=== PATIENT | male | born 1955 | race American Indian/Alaskan Native ===

== ENCOUNTER 2020-12-23 08:26 | Emergency (ER) | payer MEDICAID, SELFPAY ==
[2020-12-23 08:35] VITALS: BP 156/90; PULSE 62; RESP 18; TEMP 36.9; O2SAT 98; BMI 25.0
--- NOTE | 2020-12-23 08:43 | ED_ITS ---
HPI - Dental/Oral General Chief complaint: Dental/Oral Stated complaint: bad tooth ache, lower and upper Time Seen by Provider: 12/23/20 08:30 Source: patient Mode of arrival: Ambulatory Limitations: no limitations History of Present Illness HPI Narrative: 65-year-old male smoker with noncontributory medical history presents with a chief complaint of some mild facial swelling and multiple dental caries and fractured teeth causing pain over the past few days. He is unable to get in with his dentist until Monday and is hoping for some help. He does have some mild swelling as stated but denies any difficulty in swallowing. He denies any foul taste in his mouth. He has had no fever, chills nor nausea or vomi ting. MD Complaint: tooth pain Teeth map: 1. 2. 3. 4. Onset (ago): day(s) Duration: constant Relieving factors: nothing Exacerbating factors: chewing, cold, heat and drinking fluids Context: history of dental caries Treatment prior to arrival: none Related Data Previous Rx's Medication Instructions Recorded hydrocodone-acetaminophen 0 tab PO Q6HP PRN #30 tab 11/12/17 amoxicillin-pot clavulanate 1 tab PO BID #20 tab 12/23/20 [Augmentin] ketorolac 10 mg PO Q6H PRN #14 tab 12/23/20 Allergies Allergy/AdvReac Type Severity Reaction Status Date / Time No Known Drug Allergies Allergy Unverified 12/21/17 11:26 Review of Systems Constitutional Constitutional: Denies body ache(s), Denies chills and Denies headache(s) Eyes Eyes: Denies blurry vision ENT Ears, Nose, Mouth, and Throat: Reports dental pain, Denies headache(s) and Reports lip swelling Cardiovascular Cardiovascular: Denies chest pain Respiratory Respiratory: Denies cough Gastrointestinal Gastrointestinal: Denies abdominal pain, Denies nausea and Denies vomiting Integumentary/Breasts Skin/Breast: Denies rash Neurologic Neurologic: Denies headache(s) Allergic/Immunologic Allergic/Immunologic: Reports lip swelling Patient History Social History Smoking Status: Current every day smoker Smoking Status: Current every day smoker (1-2 packs weekly) Exam Narrative Exam Narrative: GEN: AOx3 and in mild distress EYES: Pupils are equal, round, and reactive to light and accommodation. Extraoccular muscles are intact bilaterally. There is no subconjunctival hemorrhage or exudate. ENT: Minimal right upper maxillary swelling with tenderness to palpation, no erythema, warmth, fluctuance or induration. Intraoral exam notes widespread poor dentition with multiple dental caries, no obvious abscess to drain. No s ignificant facial swelling no neck swelling CHEST: Lungs are clear to auscultation bilaterally and free of wheezes, rales, or rhonchi. Heart rate is regular rhythm, there are no murmurs, clicks, rubs, or gallops. There is no chest wall tenderness. ABD: Abdomen is soft and nontender. There is no guarding or rebound. Bowel sounds are normal in all 4 quadrants. There is no mass or organomegaly. EXT: Full painless ROM of all extremities with no loss of sensation or strength. SKIN: Warm, pink, and dry. No erythema or rash Discharge Plan Departure Patient Disposition: Home Clinical Impression: Pain due to dental caries, Abscess, dental Instructions: Tooth Abscess Activity Restrictions/Additional Instructions: *You have been diagnosed with [dental pain, probable early infection, no abscess to drain] *What to do: *Please continue to take your regular medications as directed. [x ] New medication prescriptions sent to your pharmacy: [[facility] ] [ ] New medication written as a paper prescription [ ] No new medications given *Please follow up with your Dentist on Monday as planned *Return to Emergency Department if you should have any new, worsening or concerning symptoms, such as [fever greater than 101 F, shaking chills, worsening pain, persistent vomiting or other bothersome symptoms] Prescriptions: New ketorolac 10 mg tablet 10 mg PO Q6H PRN (Reason: pain) Qty: 14 RF: 0 amoxicillin-pot clavulanate [Augmentin] 875-125 mg tablet 1 tab PO BID Qty: 20 RF: 0 No Action hydrocodone-acetaminophen 5 MG/325 MG tablet 0 tab PO Q6HP PRNQty: 30 RF: 0 Referrals: Natalia Mock MD [Primary Care Provider] -
== END 2020-12-23 08:50 | disposition home or self-care (01) ==
PROVIDERS: Emergency Provider Emergency Medicine; Family Provider Family Medicine; PCP Family Medicine
DX: K04.7 Periapical abscess without sinus (principal); K02.9 Dental caries, unspecified
CPT/HCPCS: 99281

== ENCOUNTER → 2021-04-20 15:10 | Outpatient (CLI) | payer MEDICAID, SELFPAY ==
[2021-04-20 15:50] LABS: COVID19 -Nasal RAPID Negative (Negative)
== END ==
PROVIDERS: Family Provider Family Medicine; PCP Family Medicine; Visit Provider Specialist
DX: Z01.812 Encounter for preprocedural laboratory examination (principal); Z20.822 Contact with and (suspected) exposure to COVID-19
CPT/HCPCS: 87635; C9803

== ENCOUNTER 2021-04-21 13:44 | Day surgery (SDC) | payer MEDICAID, SELFPAY ==
[2021-04-16 12:57] VITALS: BMI 24.3
[2021-04-21] VITALS (8 sets, daily range): BP systolic 120–139; BP diastolic 75–92; PULSE 50–82; RESP 9–18; TEMP 36.6–37; O2SAT 96–99; BMI 24.3
[2021-04-21] MEDS: LACTATED RINGERS 1,000 ML 100 ML IV (13:54)
--- NOTE | 2021-04-21 15:08 | PM.PREOP ---
Pre-operative Note COVID-19 COVID-19 status: Negative Result date/Date tested (Pos, Neg/Pending): 04/20/21 Interval Note History & Physical reviewed/Exam performed by Physician: Yes Changes to H&P: No
[2021-04-21] MEDS: CEFAZOLIN 1 GM VIAL 2 GM IV (16:53)
--- NOTE | 2021-04-21 17:00 | SUR.OPER ---
Supine on padded OR bed, head on pillow, arms secured on padded arm boards at <90 degrees abduction, legs uncrossed, safety belt at thigh, tape over blanket over lower legs.
[2021-04-21] MEDS: BUPIVACAINE 0.5% (PF) VIAL 30 ML INJ (17:04)
--- NOTE | 2021-04-21 17:34 | PM.OP.1 ---
Operative Date/Time/Diagnoses Date of procedure: 04/21/21 Time of procedure: 17:34 Pre-op diagnosis: Incarcerated epigastric hernia Post-op diagnosis: same Procedure & Clinicians Procedure: Repair without the use of mesh Same procedure as scheduled: Yes Indications: Patient with a symptomatic epigastric hernia brought for repair Surgeon: Morris Shoemaker Click Yes if Unassisted: Yes Anesthesia Type: General Operative Notes Findings: Several mm opening in the fascia with protruding preperitoneal fat. The fat was excised as a could not be reduced. Closure Type: primary Specimen(s): none sent Prosthetic devices, grafts, tissues, transplants, or devices: None Estimated Blood Loss (mL): 5 Blood products transfused: none Procedure in detail: Patient was placed supine on the operating room table underwent general LMA anesthesia. He was prepped and draped in the usual fashion. Local anesthetic was infiltrated and a transverse incision made overlying the palpable mass in his epigastrium. This was slightly to the left of midline and thus the transverse incision was made. Was carried into the subcu. The hernia and sac were identified and from surrounding structures. I opened the hernia sac and attempted to clear the fascial edge and reduce it but it would not reduce. The defect was tiny. Therefore I incised the sac at the level the fascia and suture ligated the protruding fat. This was done with a 3-0 Vicryl. I was able to reduce this and cleared the fascial edge of the hole. The defect was no more than about 3 or 4 mm in size. I used a [id number] Ethibond close this. I confirmed that there was no injury to any of the structures below the opening before tying the sutures and repairing the hernia. The subQ was reapproximated with interrupte 3-0 Vicryl. The skin was closed with interrupted 4-0 Vicryl subcuticular stitches and Steri-Strip. Complications: none Post-operative Condition: stable Disposition: PACU
[2021-04-21] MEDS: fentaNYL 100 MCG/2 ML INJ IV (17:52)
[2021-04-21] MEDS: ACETAMINOPHEN 325 MG TABLET 650 MG PO (17:59)
[2021-04-21] MEDS: CODEINE/ACETAMINOPHEN 30/300 TABLET 1 TAB PO (18:20)
--- NOTE | 2021-04-21 18:22 | SUR.PHASEI ---
Denies dizziness, tolerating PO well. States I'm starting to feel better while stretching his arms. See FLACC score. Dozing intermittently. Resp unlabored, skin warm and dry
--- NOTE | 2021-04-21 18:38 | SUR.PHASEII ---
Patient dressed, stable, ready to depart. Waiting for Dr. Shoemaker to talk with him prior to discharge. All questions answered. Very pleasant and appropriate.
--- NOTE | 2021-04-21 19:00 | SUR.PHASEII ---
Dr. Shoemaker reviewed tylenol limitations with the patient - not to mix tylenol with the Tylenol #3
== END 2021-04-21 18:50 | disposition home or self-care (01) ==
PROVIDERS: Family Provider Family Medicine; PCP Family Medicine; Referring Provider Specialist; Visit Provider Specialist
PROC: (CPT 49572; principal; 2021-04-21 13:45)
DX: K43.6 Other and unspecified ventral hernia with obstruction, without gangrene (principal); I10 Essential (primary) hypertension; K21.9 Gastro-esophageal reflux disease without esophagitis; F17.210 Nicotine dependence, cigarettes, uncomplicated
CPT/HCPCS: 49572; J0690; J1100; J2405; J2704; J3010

== ENCOUNTER 2021-11-23 10:42 | Emergency (ER) | payer MEDICAID, SELFPAY ==
[2021-11-23 10:46] VITALS: BP 144/80; PULSE 88; RESP 20; TEMP 36.3; O2SAT 99
--- NOTE | 2021-11-23 10:56 | ED_ITS ---
HPI - Skin/Abscess/Foreign Bdy General Chief complaint: Skin/Abscess/Foreign Body Stated complaint: All over body rash x4 days Time Seen by Provider: 11/23/21 10:44 Source: patient Mode of arrival: Ambulatory Limitations: no limitations History of Present Illness HPI narrative: 65-year-old male daily smoker without any obvious chronic medical problems presents with multiple complaints over the past few days. He states he thinks things started after he his hair recently any now has an irritated scalp on both sides with some painful bumps that seemed to extend down around his ears into the base of his neck. Additionally he has some painful, itchy portions of rash in his mid upper back. He denies any fever or chills. He denies any trouble breathing nor facial swelling, tongue swelling, difficulty swallowing or breathing. He denies any blurred vision or trouble with speech. Related Data Previous Rx's Medication Instructions Recorded clotrimazole 1 % topical cream 1 applic TOPICAL BID 14 Days g 11/23/21 doxycycline hyclate 100 mg tablet 100 mg PO BID #20 tab 11/23/21 valacyclovir 1 gram tablet 1,000 mg PO TID 10 Days #30 tab 11/23/21 Allergies Allergy/AdvReac Type Severity Reaction Status Date / Time No Known Drug Allergies Allergy Verified 11/23/21 10:49 Review of Systems Review of Systems Narrative: GENERAL: Denies chills, fatigue, malaise, fever, sweats. HEENT: Denies sinus pain, ear pain, sore throat, difficulty swallowing, dizziness. RESPIRATORY: Denies dyspnea, cough, wheezing, hemoptysis, sputum. CARDIOVASCULAR: Denies chest pain, palpitations, orthopnea, edema, GASTROINTESTINAL: Denies nausea, vomiting, abdominal pain, diarrhea, constipation, melena. : Denies dysuria, frequency, incontinence, hematuria, urinary retention. MUSCULOSKELETAL: denies weakness, joint pain, or bony pain SKIN: See HPI NEUROLOGIC: Denies weakness, headache, numbness, change in speech, confusion, seizures, incoordination. PSYCHIATRIC: No concerning psychosocial issues. 12 point review of systems is negative except for those stated above Patient History Medical History Arthritis DDD (degenerative disc disease) GERD (gastroesophageal reflux disease) HTN (hypertension) Surgical History Hx of knee surgery Social History marital status: unknown household members: significant other and none Smoking Status: Current every day smoker alcohol intake: current substance use type: does not use Smoking Status: Current every day smoker alcohol intake frequency: 0-2 drinks per day Substance Use Type: former substance user, marijuana and tranquilizers Exam Narrative Exam Narrative: GENERAL: [65] year old patient appears stated age. Well-developed patient, in mild distress. GCS 15 HEAD: Atraumatic. Normocephalic. No facial swelling, lip swelling. Multiple mildly tender red bumps in the hairline extending down to his ears, these are not fluctuant and not obviously fluid filled EYES: Pupils equal round and reactive. Extraocular motions intact. No scleral icterus. No injection or drainage. ENT: Nose without bleeding, purulent drainage. Throat without erythema, tonsillar hypertrophy or exudate. Airway patent. NECK: Trachea midline. Non tender CARDIOVASCULAR: Regular rate and rhythm without murmurs, gallops, or rubs. RESPIRATORY: Clear to auscultation. Breath sounds equal bilaterally. No wheezes, rales, or rhonchi. GASTROINTESTINAL: Abdomen soft, non-tender, nondistended. EXTREMITIES: No edema or joint tenderness. BACK: Nontender without deformity or crepitance. No flank tenderness. NEURO: AOx3. SKIN: Just to the midline of his upper back there is a patch of an itchy rash that appears to be coalescing vesicles on an erythematous base that could certainly be consistent with shingles. Initial Vital Signs Initial Vital Signs: Vital Signs Temperature 97.4 F L 11/23/21 10:46 Pulse Rate 88 11/23/21 10:46 Respiratory Rate 20 11/23/21 10:46 Blood Pressure 144/80 H 11/23/21 10:46 Pulse Oximetry 99 11/23/21 10:46 Course Vital Signs Vital signs: Vital Signs - 8 hr 11/23/21 10:46 Temperature 97.4 F L Pulse Rate 88 Respiratory Rate 84 H Blood Pressure 144/80 H Pulse Oximetry 99 Discharge Plan Departure Patient Disposition: Home Clinical Impression: Folliculitis, Shingles, Fungal infection of foot Activity Restrictions/Additional Instructions: *You have been diagnosed with [folliculitis of scalp with possible early shingles and fungal foot infection ] *What to do: *Please continue to take your regular medications as directed. [x ] New medication prescriptions sent to your pharmacy: [ [facility]] [ ] New medication written as a paper prescription [ ] No new medications given *Please follow up with your primary care provider in 2-3 days, call for an appointment. Let them know you were seen in the Emergency Department and that we ask that you be seen in follow up. We will electronically transmit a record of today's note if your PCP is in our system *If you do not have a primary care provider please contact the [facility] Resource line at [phone]. They will ask some questions about your medical history and help get you set up with a doctor in the community. *Return to Emergency Department if you should have any new, worsening or concerning symptoms, such as [fever greater than 101 F, shaking chills, worsening pain, persistent vomiting or other bothersome symptoms] Prescriptions: New doxycycline hyclate 100 mg tablet 100 mg PO BID Qty: 20 0RF clotrimazole 1 % cream 1 applic topical BID 14 Days 0RF valacyclovir 1 gram tablet 1,000 mg PO TID 10 Days Qty: 30 0RF Referrals: Natalia Mock MD [Primary Care Provider] -
== END 2021-11-23 11:45 | disposition home or self-care (01) ==
PROVIDERS: Emergency Provider Emergency Medicine; Family Provider Family Medicine; PCP Family Medicine
DX: L73.9 Follicular disorder, unspecified (principal); B02.9 Zoster without complications; B35.3 Tinea pedis
CPT/HCPCS: 99281

== ENCOUNTER 2021-12-06 12:37 | Emergency (ER) | payer MEDICAID, SELFPAY ==
[2021-12-06 12:47] VITALS: BP 117/85; PULSE 90; RESP 20; TEMP 36.7; O2SAT 99; BMI 24.3
[2021-12-06 13:16] LABS: Add Manual Diff / Slide Review NO; Basophils Absolute Auto 100 /uL (0-100); Basophils Percent Auto 0.6 % (0-2); Eosinophils Absolute Auto 400 /uL (0-450); Eosinophils Percent Auto 2.6 % (2-4); Hematocrit 48.5 % (41-53); Hemoglobin 16.3 g/dL (13.5-17.5); Lymphocytes Absolute Auto 1700 /uL (1100-4500); Lymphocytes Percent Auto 12.2 % (25-40); Mean Corpuscular HGB Conc 33.5 % (30-36); Mean Corpuscular Hemoglobin 31.3 PG (26-34); Mean Corpuscular Volume 93.5 fL (80-100); Monocytes Absolute Auto 600 /uL (0-900); Monocytes Percent Auto 4.3 % (3-14); Neutrophils Absolute Auto 10900 /uL (1500-7000); Neutrophils Percent Auto 80.3 % (50-75); Platelet Count 252 X10^3/uL (150-400); Red Blood Cell Count 5.19 X10^6/uL (4.5-5.9); Red Cell Distribution Width 14.5 % (11.6-14.8); White Blood Cell Count 13.6 X10^3/uL (4.5-11.0)
[2021-12-06 13:23] LABS: Prothrombin Time 10.9 SECONDS (10.1-12.7)
[2021-12-06 13:26] LABS: PTT Partial Thromboplastin Tim 28 SECONDS (26.4-36.2)
[2021-12-06 13:33] LABS: Alanine Aminotransferase 27 IU/L (<50); Albumin Globulin Ratio 1.5 (1.0-2.8); Alkaline Phosphatase 77 U/L (38-126); Aspartate Aminotransferase 32 IU/L (17-59); BUN Creatinine Ratio 14.2 (6-22); Bilirubin Total 0.5 mg/dL (0.2-1.3); Blood Urea Nitrogen 16 mg/dL (9-20); Calcium 8.8 mg/dL (8.4-10.2); Carbon Dioxide 26 mmol/L (22-32); Chloride 107 mmol/L (98-107); Estimated Glomerular Filt Rate > 60 mL/min (>60); Globulin 2.6 g/dL (1.7-4.1); Glucose 88 mg/dL (80-110); HEMOLYSIS < 15 (0-50); Lipase 49 U/L (23-300); Potassium 3.2 mmol/L (3.4-5.1); Sodium 141 mmol/L (137-145); Total Protein 6.6 g/dL (6.3-8.2)
[2021-12-06 13:35] LABS: C-Reactive Protein Quant < 0.5 mg/dL (<1.0); Creatine Kinase 175 U/L (55-170)
[2021-12-06 13:38] LABS: Erythrocyte Sedimentation Rate 1 MM/HR (0-15)
[2021-12-06 13:41] LABS: Troponin I < 0.012 ng/mL (0.01-0.034)
[2021-12-06 13:48] LABS: CKMB % Relative Index 1.1 % (1.5-5.0)
--- NOTE | 2021-12-06 13:49 | ED_ITS ---
HPI - Skin/Abscess/Foreign Bdy General Chief complaint: Skin/Abscess/Foreign Body Stated complaint: Issues needing a doctor Time Seen by Provider: 12/06/21 13:39 Source: patient Mode of arrival: Ambulatory Limitations: no limitations Related Data Previous Rx's Medication Instructions Recorded prednisone 10 mg tablets in a dose See Rx Instructions .ROUTE 12/06/21 pack .COMPLEX #48 ea Allergies Allergy/AdvReac Type Severity Reaction Status Date / Time No Known Drug Allergies Allergy Verified 12/06/21 12:51 Patient History Medical History Arthritis DDD (degenerative disc disease) GERD (gastroesophageal reflux disease) HTN (hypertension) Surgical History Hx of knee surgery Social History marital status: unknown household members: significant other and none Smoking Status: Current every day smoker alcohol intake: current substance use type: does not use Smoking Status: Current every day smoker alcohol intake frequency: 0-2 drinks per day Substance Use Type: former substance user, marijuana and tranquilizers Exam Initial Vital Signs Initial Vital Signs: Vital Signs Temperature 98.1 F 12/06/21 12:47 Pulse Rate 90 12/06/21 12:47 Respiratory Rate 20 12/06/21 12:47 Blood Pressure 117/85 12/06/21 12:47 Pulse Oximetry 99 12/06/21 12:47 Course Orders Ordered: ED Orders 12/06/21 13:00 C-Reactive Protein Quant Stat Complete Blood Count AUTO DIFF Stat Comprehensive Metabolic Panel Stat Erythrocyte Sedimentation Rate Stat Lipase Stat Partial Thromboplastin Time Stat Prothrombin Time INR Stat Troponin & CK Cardiac Panel Stat Vital Signs Vital signs: Vital Signs - 8 hr 12/06/21 12:47 12/06/21 15:07 Temperature 98.1 F Pulse Rate 90 80 Respiratory Rate 20 16 Blood Pressure 117/85 122/78 Pulse Oximetry 99 99 MDM - Skin/Abscess/Foreign Bdy Lab Data Result diagrams: 12/06/21 13:00 12/06/21 13:00 Labs: Lab Results 12/06/21 12/06/21 12/06/21 Range/Units 13:00 13:00 13:00 WBC 13.6 H (4.5-11.0) X10^3/uL RBC 5.19 (4.5-5.9) X10^6/uL Hgb 16.3 (13.5-17.5) g/dL Hct 48.5 (41-53) % MCV 93.5 (80-100) fL MCH 31.3 (26-34) PG MCHC 33.5 (30-36) % RDW 14.5 (11.6-14.8) % Plt Count 252 (150-400) X10^3/uL Neut % (Auto) 80.3 H (50-75) % Lymph % (Auto) 12.2 L (25-40) % [place] % (Auto) 4.3 (3-14) % Eos % (Auto) 2.6 (2-4) % Baso % (Auto) 0.6 (0-2) % Neut # (Auto) 07099 H (2041-1165) /uL Lymph # (Auto) 1700 (8630-1110) /uL [place] # (Auto) 600 (0-900) /uL Eos # (Auto) 400 (0-450) /uL Baso # (Auto) 100 (0-100) /uL ESR 1 (0-15) MM/HR PT (10.1-12.7) SECONDS INR (0.9-1.3) APTT (26.4-36.2) SECONDS Sodium 141 (137-145) mmol/L Potassium 3.2 L (3.4-5.1) mmol/L Chloride 107 (98-107) mmol/L Carbon Dioxide 26 (22-32) mmol/L BUN 16 (9-20) mg/dL Creatinine 1.13 (0.66-1.25) mg/dL Estimated GFR > 60 (>60) mL/min BUN/Creatinine Ratio 14.2 (6-22) Glucose 88 (80-110) mg/dL Calcium 8.8 (8.4-10.2) mg/dL Total Bilirubin 0.5 (0.2-1.3) mg/dL AST 32 (17-59) IU/L ALT 27 (<50) IU/L Alkaline Phosphatase 77 (38-126) U/L Total Creatine Kinase (55-170) U/L CK-MB (CK-2) (<2.37) ng/mL CK-MB (CK-2) Rel Index (1.5-5.0) % Troponin I (0.01-0.034) ng/mL C-Reactive Protein (<1.0) mg/dL Total Protein 6.6 (6.3-8.2) g/dL Albumin 4.0 (3.5-5.0) g/dL Globulin 2.6 (1.7-4.1) g/dL Albumin/Globulin Ratio 1.5 (1.0-2.8) Lipase 49 (23-300) U/L 12/06/21 12/06/21 Range/Units 13:00 13:00 WBC (4.5-11.0) X10^3/uL RBC (4.5-5.9) X10^6/uL Hgb (13.5-17.5) g/dL Hct (41-53) % MCV (80-100) fL MCH (26-34) PG MCHC (30-36) % RDW (11.6-14.8) % Plt Count (150-400) X10^3/uL Neut % (Auto) (50-75) % Lymph % (Auto) (25-40) % [place] % (Auto) (3-14) % Eos % (Auto) (2-4) % Baso % (Auto) (0-2) % Neut # (Auto) (2869-7079) /uL Lymph # (Auto) (6063-0845) /uL [place] # (Auto) (0-900) /uL Eos # (Auto) (0-450) /uL Baso # (Auto) (0-100) /uL ESR (0-15) MM/HR PT 10.9 (10.1-12.7) SECONDS INR 1.0 (0.9-1.3) APTT 28 (26.4-36.2) SECONDS Sodium (137-145) mmol/L Potassium (3.4-5.1) mmol/L Chloride (98-107) mmol/L Carbon Dioxide (22-32) mmol/L BUN (9-20) mg/dL Creatinine (0.66-1.25) mg/dL Estimated GFR (>60) mL/min BUN/Creatinine Ratio (6-22) Glucose (80-110) mg/dL Calcium (8.4-10.2) mg/dL Total Bilirubin (0.2-1.3) mg/dL AST (17-59) IU/L ALT (<50) IU/L Alkaline Phosphatase (38-126) U/L Total Creatine Kinase 175 H (55-170) U/L CK-MB (CK-2) 2.00 (<2.37) ng/mL CK-MB (CK-2) Rel Index 1.1 L (1.5-5.0) % Troponin I < 0.012 (0.01-0.034) ng/mL C-Reactive Protein < 0.5 (<1.0) mg/dL Total Protein (6.3-8.2) g/dL Albumin (3.5-5.0) g/dL Globulin (1.7-4.1) g/dL Albumin/Globulin Ratio (1.0-2.8) Lipase (23-300) U/L Discharge Plan Departure Patient Disposition: Home Clinical Impression: Scabies Instructions: Scabies Activity Restrictions/Additional Instructions: You were evaluated in the ED today for a rash. You were diagnosed with scabies by your PCP. In the ED, your physical exam appears consistent with scabies. Please continue to use the permethrin cream per the prescription instructions. Please also continue the ivermectin by mouth per the prescription instructions. You have been prescribed a prednisone taper to help with the inflammation and itching. Please follow-up with your PCP in 1 week. Return to the ED if you have worsening symptoms, fever, chills. Prescriptions: New prednisone 10 mg tablets,dose pack See Rx Instructions .ROUTE .COMPLEX Qty: 48 0RF Rx Instructions: orally per package directions Referrals: Natalia Mock MD [Primary Care Provider] -
[2021-12-06 15:07] VITALS: BP 122/78; PULSE 80; RESP 16; O2SAT 99
--- NOTE | 2021-12-06 15:09 | ED.SKABFB ---
HPI - Skin/Abscess/Foreign Bdy <Iqra Woods PA-C - Last Filed: 12/06/21 15:17> General Chief complaint: Skin/Abscess/Foreign Body Stated complaint: Issues needing a doctor Time Seen by Provider: 12/06/21 13:39 Source: patient Mode of arrival: Ambulatory Limitations: no limitations History of Present Illness HPI narrative: 65-year-old male presents to the ED for a worsening rash. Patient was seen in the ED on 11/23/2021, diagnosed with folliculitis, shingles, fungal infection, prescribed doxycycline, valacyclovir, clotrimazole. Patient said he you saw his PCP after there was no relief from the prescribed medications, was diagnosed with scabies and prescribed permethrin cream, ivermectin p.o.. Patient states that he has not had much relief with those medications, however he only recently took a dose of the ivermectin 2 days ago. Patient describes the rash as itchy. Patient endorses feeling some chills. Patient denies fever, chest pain, shortness of breath. Related Data Previous Rx's Medication Instructions Recorded prednisone 10 mg tablets in a dose See Rx Instructions .ROUTE 12/06/21 pack .COMPLEX #48 ea Allergies Allergy/AdvReac Type Severity Reaction Status Date / Time No Known Drug Allergies Allergy Verified 12/06/21 12:51 Review of Systems <Iqra Woods PA-C - Last Filed: 12/06/21 15:17> Review of Systems ROS Unobtainable: All systems reviewed & are unremarkable except as noted in HPI and below Constitutional Constitutional: Reports chills, Denies fatigue, Denies fever(s), Denies frequent falls, Denies lethargy and Denies weakness Eyes Eyes: Denies change in vision, Denies eye discharge, Denies irritation and Denies loss of vision ENT Ears, Nose, Mouth, and Throat: Denies change in voice, Denies dizziness, Denies neck pain, Denies sore throat and Denies throat swelling Cardiovascular Cardiovascular: Denies chest pain, Denies irregular heart rhythm, Denies lightheadedness, Denies palpitations, Denies dyspnea, Denies dyspnea on exertion and Denies orthopnea Respiratory Respiratory: Denies cough, Denies dyspnea, Denies dyspnea on exertion and Denies wheezing Gastrointestinal Gastrointestinal: Denies abdominal pain, Denies change in bowel habits, Denies diarrhea, Denies nausea and Denies vomiting Genitourinary Genitourinary: Denies hematuria, Denies flank pain, Denies urinary incontinence and Denies urinary urgency Musculoskeletal Musculoskeletal: Denies back pain, Denies muscle weakness, Denies neck pain, Denies numbness and Denies tingling Integumentary/Breasts Skin/Breast: Denies pruritus, Denies erythema, Reports rash and Denies wounds Neurologic Neurologic: Denies behavioral changes, Denies confusion, Denies dizziness, Denies frequent falls, Denies loss of vision, Denies numbness, Denies tingling and Denies weakness Psychiatric Psychiatric: Denies anxiety, Denies behavioral changes, Denies confusion, Denies depression, Denies homicidal ideation and Denies suicidal ideation Endocrine Endocrine: Denies fatigue, Denies flushing and Denies palpitations Hematologic/Lymphatic Hematologic/Lymphatic: Denies easy bruising Allergic/Immunologic Allergic/Immunologic: Denies urticaria, Denies throat swelling and Denies wheezing Patient History <Iqra Woods PA-C - Last Filed: 12/06/21 15:17> Medical History Arthritis DDD (degenerative disc disease) GERD (gastroesophageal reflux disease) HTN (hypertension) Surgical History Hx of knee surgery Social History marital status: unknown household members: significant other and none Smoking Status: Current every day smoker alcohol intake: current substance use type: does not use Smoking Status: Current every day smoker alcohol intake frequency: 0-2 drinks per day Substance Use Type: former substance user, marijuana and tranquilizers Exam <Iqra Woods PA-C - Last Filed: 12/06/21 15:17> Initial Vital Signs Initial Vital Signs: Vital Signs Temperature 98.1 F 12/06/21 12:47 Pulse Rate 90 12/06/21 12:47 Respiratory Rate 20 12/06/21 12:47 Blood Pressure 117/85 12/06/21 12:47 Pulse Oximetry 99 12/06/21 12:47 Const General: cooperative, healthy appearing and comfortable [facility] Head: normal to inspection Eyes General: Yes appearance normal, both eyes and all related structures Resp Effort & Inspection: normal respiratory effort Auscultation: clear to auscultation bilaterally Cardio Rate: regular rate Rhythm: regular rhythm Skin Other: Diffuse rash all over the body, consistent with scabies. Some tracts, follows noted in the webspaces between the right hand. No signs of superimposed infection. Neuro General: patient alert, patient awake and patient oriented x3 Psych Appearance: grossly normal Mental Status: mental status grossly normal <London Abdi DO - Last Filed: 12/10/21 00:11> Initial Vital Signs Initial Vital Signs: Vital Signs Temperature 98.1 F 12/06/21 12:47 Pulse Rate 90 12/06/21 12:47 Respiratory Rate 20 12/06/21 12:47 Blood Pressure 117/85 12/06/21 12:47 Pulse Oximetry 99 12/06/21 12:47 Course <Iqra Woods PA-C - Last Filed: 12/06/21 15:17> Orders Ordered: ED Orders 12/06/21 13:00 C-Reactive Protein Quant Stat Complete Blood Count AUTO DIFF Stat Comprehensive Metabolic Panel Stat Erythrocyte Sedimentation Rate Stat Lipase Stat Partial Thromboplastin Time Stat Prothrombin Time INR Stat Troponin & CK Cardiac Panel Stat Vital Signs Vital signs: Vital Signs - 8 hr 12/06/21 12:47 12/06/21 15:07 Temperature 98.1 F Pulse Rate 90 80 Respiratory Rate 20 16 Blood Pressure 117/85 122/78 Pulse Oximetry 99 99 <London Abdi DO - Last Filed: 12/10/21 00:11> Orders Ordered: ED Orders 12/06/21 13:00 C-Reactive Protein Quant Stat Complete Blood Count AUTO DIFF Stat Comprehensive Metabolic Panel Stat Erythrocyte Sedimentation Rate Stat Lipase Stat Partial Thromboplastin Time Stat Prothrombin Time INR Stat Troponin & CK Cardiac Panel Stat Vital Signs Vital signs: Vital Signs - 8 hr 12/06/21 12:47 12/06/21 15:07 Temperature 98.1 F Pulse Rate 90 80 Respiratory Rate 20 16 Blood Pressure 117/85 122/78 Pulse Oximetry 99 99 MDM - Skin/Abscess/Foreign Bdy <BROOKS Loera Last Filed: 12/06/21 15:17> Medical Records Attestation: I reviewed the patient's medical records. Lab Data Attestation: I reviewed the patient's lab results. Lab results narrative: Labs within normal limits. Result diagrams: 12/06/21 13:00 12/06/21 13:00 Labs: Lab Results 12/06/21 12/06/21 12/06/21 Range/Units 13:00 13:00 13:00 WBC 13.6 H (4.5-11.0) X10^3/uL RBC 5.19 (4.5-5.9) X10^6/uL Hgb 16.3 (13.5-17.5) g/dL Hct 48.5 (41-53) % MCV 93.5 (80-100) fL MCH 31.3 (26-34) PG MCHC 33.5 (30-36) % RDW 14.5 (11.6-14.8) % Plt Count 252 (150-400) X10^3/uL Neut % (Auto) 80.3 H (50-75) % Lymph % (Auto) 12.2 L (25-40) % [place] % (Auto) 4.3 (3-14) % Eos % (Auto) 2.6 (2-4) % Baso % (Auto) 0.6 (0-2) % Neut # (Auto) 90578 H (0932-0940) /uL Lymph # (Auto) 1700 (0552-1447) /uL [place] # (Auto) 600 (0-900) /uL Eos # (Auto) 400 (0-450) /uL Baso # (Auto) 100 (0-100) /uL ESR 1 (0-15) MM/HR PT (10.1-12.7) SECONDS INR (0.9-1.3) APTT (26.4-36.2) SECONDS Sodium 141 (137-145) mmol/L Potassium 3.2 L (3.4-5.1) mmol/L Chloride 107 (98-107) mmol/L Carbon Dioxide 26 (22-32) mmol/L BUN 16 (9-20) mg/dL Creatinine 1.13 (0.66-1.25) mg/dL Estimated GFR > 60 (>60) mL/min BUN/Creatinine Ratio 14.2 (6-22) Glucose 88 (80-110) mg/dL Calcium 8.8 (8.4-10.2) mg/dL Total Bilirubin 0.5 (0.2-1.3) mg/dL AST 32 (17-59) IU/L ALT 27 (<50) IU/L Alkaline Phosphatase 77 (38-126) U/L Total Creatine Kinase (55-170) U/L CK-MB (CK-2) (<2.37) ng/mL CK-MB (CK-2) Rel Index (1.5-5.0) % Troponin I (0.01-0.034) ng/mL C-Reactive Protein (<1.0) mg/dL Total Protein 6.6 (6.3-8.2) g/dL Albumin 4.0 (3.5-5.0) g/dL Globulin 2.6 (1.7-4.1) g/dL Albumin/Globulin Ratio 1.5 (1.0-2.8) Lipase 49 (23-300) U/L 12/06/21 12/06/21 Range/Units 13:00 13:00 WBC (4.5-11.0) X10^3/uL RBC (4.5-5.9) X10^6/uL Hgb (13.5-17.5) g/dL Hct (41-53) % MCV (80-100) fL MCH (26-34) PG MCHC (30-36) % RDW (11.6-14.8) % Plt Count (150-400) X10^3/uL Neut % (Auto) (50-75) % Lymph % (Auto) (25-40) % [place] % (Auto) (3-14) % Eos % (Auto) (2-4) % Baso % (Auto) (0-2) % Neut # (Auto) (2191-5367) /uL Lymph # (Auto) (2149-3364) /uL [place] # (Auto) (0-900) /uL Eos # (Auto) (0-450) /uL Baso # (Auto) (0-100) /uL ESR (0-15) MM/HR PT 10.9 (10.1-12.7) SECONDS INR 1.0 (0.9-1.3) APTT 28 (26.4-36.2) SECONDS Sodium (137-145) mmol/L Potassium (3.4-5.1) mmol/L Chloride (98-107) mmol/L Carbon Dioxide (22-32) mmol/L BUN (9-20) mg/dL Creatinine (0.66-1.25) mg/dL Estimated GFR (>60) mL/min BUN/Creatinine Ratio (6-22) Glucose (80-110) mg/dL Calcium (8.4-10.2) mg/dL Total Bilirubin (0.2-1.3) mg/dL AST (17-59) IU/L ALT (<50) IU/L Alkaline Phosphatase (38-126) U/L Total Creatine Kinase 175 H (55-170) U/L CK-MB (CK-2) 2.00 (<2.37) ng/mL CK-MB (CK-2) Rel Index 1.1 L (1.5-5.0) % Troponin I < 0.012 (0.01-0.034) ng/mL C-Reactive Protein < 0.5 (<1.0) mg/dL Total Protein (6.3-8.2) g/dL Albumin (3.5-5.0) g/dL Globulin (1.7-4.1) g/dL Albumin/Globulin Ratio (1.0-2.8) Lipase (23-300) U/L MDM Narrative Medical decision making narrative: 65-year-old male presents to the ED for a worsening rash. Patient's rash appears consistent with scabies. Recommend patient continue permethrin, ivermectin as prescribed. Will prescribe a prednisone taper. Recommendation take antihistamines such as Benadryl for relief from itch. ED return precautions discussed with patient. Patient verbalized understanding. <London Abdi, DO - Last Filed: 12/10/21 00:11> Lab Data Labs: Lab Results 12/06/21 12/06/21 12/06/21 Range/Units 13:00 13:00 13:00 WBC 13.6 H (4.5-11.0) X10^3/uL RBC 5.19 (4.5-5.9) X10^6/uL Hgb 16.3 (13.5-17.5) g/dL Hct 48.5 (41-53) % MCV 93.5 (80-100) fL MCH 31.3 (26-34) PG MCHC 33.5 (30-36) % RDW 14.5 (11.6-14.8) % Plt Count 252 (150-400) X10^3/uL Neut % (Auto) 80.3 H (50-75) % Lymph % (Auto) 12.2 L (25-40) % [place] % (Auto) 4.3 (3-14) % Eos % (Auto) 2.6 (2-4) % Baso % (Auto) 0.6 (0-2) % Neut # (Auto) 47545 H (8781-3187) /uL Lymph # (Auto) 1700 (6758-5478) /uL [place] # (Auto) 600 (0-900) /uL Eos # (Auto) 400 (0-450) /uL Baso # (Auto) 100 (0-100) /uL ESR 1 (0-15) MM/HR PT (10.1-12.7) SECONDS INR (0.9-1.3) APTT (26.4-36.2) SECONDS Sodium 141 (137-145) mmol/L Potassium 3.2 L (3.4-5.1) mmol/L Chloride 107 (98-107) mmol/L Carbon Dioxide 26 (22-32) mmol/L BUN 16 (9-20) mg/dL Creatinine 1.13 (0.66-1.25) mg/dL Estimated GFR > 60 (>60) mL/min BUN/Creatinine Ratio 14.2 (6-22) Glucose 88 (80-110) mg/dL Calcium 8.8 (8.4-10.2) mg/dL Total Bilirubin 0.5 (0.2-1.3) mg/dL AST 32 (17-59) IU/L ALT 27 (<50) IU/L Alkaline Phosphatase 77 (38-126) U/L Total Creatine Kinase (55-170) U/L CK-MB (CK-2) (<2.37) ng/mL CK-MB (CK-2) Rel Index (1.5-5.0) % Troponin I (0.01-0.034) ng/mL C-Reactive Protein (<1.0) mg/dL Total Protein 6.6 (6.3-8.2) g/dL Albumin 4.0 (3.5-5.0) g/dL Globulin 2.6 (1.7-4.1) g/dL Albumin/Globulin Ratio 1.5 (1.0-2.8) Lipase 49 (23-300) U/L 12/06/21 12/06/21 Range/Units 13:00 13:00 WBC (4.5-11.0) X10^3/uL RBC (4.5-5.9) X10^6/uL Hgb (13.5-17.5) g/dL Hct (41-53) % MCV (80-100) fL MCH (26-34) PG MCHC (30-36) % RDW (11.6-14.8) % Plt Count (150-400) X10^3/uL Neut % (Auto) (50-75) % Lymph % (Auto) (25-40) % [place] % (Auto) (3-14) % Eos % (Auto) (2-4) % Baso % (Auto) (0-2) % Neut # (Auto) (1384-3559) /uL Lymph # (Auto) (1913-3325) /uL [place] # (Auto) (0-900) /uL Eos # (Auto) (0-450) /uL Baso # (Auto) (0-100) /uL ESR (0-15) MM/HR PT 10.9 (10.1-12.7) SECONDS INR 1.0 (0.9-1.3) APTT 28 (26.4-36.2) SECONDS Sodium (137-145) mmol/L Potassium (3.4-5.1) mmol/L Chloride (98-107) mmol/L Carbon Dioxide (22-32) mmol/L BUN (9-20) mg/dL Creatinine (0.66-1.25) mg/dL Estimated GFR (>60) mL/min BUN/Creatinine Ratio (6-22) Glucose (80-110) mg/dL Calcium (8.4-10.2) mg/dL Total Bilirubin (0.2-1.3) mg/dL AST (17-59) IU/L ALT (<50) IU/L Alkaline Phosphatase (38-126) U/L Total Creatine Kinase 175 H (55-170) U/L CK-MB (CK-2) 2.00 (<2.37) ng/mL CK-MB (CK-2) Rel Index 1.1 L (1.5-5.0) % Troponin I < 0.012 (0.01-0.034) ng/mL C-Reactive Protein < 0.5 (<1.0) mg/dL Total Protein (6.3-8.2) g/dL Albumin (3.5-5.0) g/dL Globulin (1.7-4.1) g/dL Albumin/Globulin Ratio (1.0-2.8) Lipase (23-300) U/L Discharge Plan Departure Patient Disposition: Home Clinical Impression: Scabies Instructions: Scabies Activity Restrictions/Additional Instructions: You were evaluated in the ED today for a rash. You were diagnosed with scabies by your PCP. In the ED, your physical exam appears consistent with scabies. Please continue to use the permethrin cream per the prescription instructions. Please also continue the ivermectin by mouth per the prescription instructions. You have been prescribed a prednisone taper to help with the inflammation and itching. Please follow-up with your PCP in 1 week. Return to the ED if you have worsening symptoms, fever, chills. Prescriptions: New prednisone 10 mg tablets,dose pack See Rx Instructions .ROUTE .COMPLEX Qty: 48 0RF Rx Instructions: orally per package directions Referrals: Natalia Mock MD [Primary Care Provider] - <London Abdi DO - Last Filed: 12/10/21 00:11> Cosign ED Attending Angyature Attestation: I was immediately available in the department for consultation. This documentation has been reviewed and I agree with assessment and plan. Supervised by London Abdi DO
== END 2021-12-06 15:10 | disposition home or self-care (01) ==
PROVIDERS: Emergency Medicine; Emergency Provider Student in an Organized Health Care Education/Training Program; Family Provider Family Medicine; PCP Family Medicine
DX: B86 Scabies (principal)
CPT/HCPCS: 36415; 80053; 82550; 82553; 83690; 84484; 85025; 85610; 85651; 85730; 86140; 99283

== ENCOUNTER 2023-01-18 05:01 | Emergency (ER) | payer SELFPAY ==
[2023-01-18] VITALS (11 sets, daily range): BP systolic 122–124; BP diastolic 69–83; PULSE 57–74; RESP 18; TEMP 36.5; O2SAT 92–100; BMI 25.0
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
[2023-01-18] MEDS: HYDROCODONE/ACET 5/325 TABLET 2 TAB PO (05:23)
== END 2023-01-18 09:07 | disposition home or self-care (01) ==
PROVIDERS: Emergency Provider Emergency Medicine; Family Provider Family Medicine; PCP Family Medicine
DX: S00.511A Abrasion of lip, initial encounter (principal); M54.9 Dorsalgia, unspecified; R10.9 Unspecified abdominal pain; R07.89 Other chest pain; Y04.2XXA Assault by strike against or bumped into by another person, initial encounter
CPT/HCPCS: 71046; 73030; 76700; 99283

== ENCOUNTER 2023-06-23 09:18 | Emergency (ER) | payer MEDICARE, MEDICAID, SELFPAY ==
[2023-06-23 09:26] VITALS: BP 115/86; PULSE 73; RESP 16; TEMP 36.6; O2SAT 99; BMI 25.0
--- NOTE | 2023-06-23 11:02 | ED.DENTAL ---
HPI - Dental/Oral <Russ Allan PA-C - Last Filed: 06/23/23 11:31> General Chief complaint: Dental/Oral Stated complaint: toothache Time Seen by Provider: 06/23/23 09:24 History of Present Illness HPI Narrative: This is a 67-year-old male presents to the emergency department due to left lower dental pain for the last month. He denies any nausea, vomiting, diarrhea, difficulty breathing or swallowing, or any other concerning signs or symptoms. He states he has a dental appointment on Monday. He is requesting antibiotics and ?pain pills?. Related Data Previous Rx's Medication Instructions Recorded prednisone 10 mg tablets in a dose See Rx Instructions PO .COMPLEX 12/06/21 pack #48 ea acetaminophen 325 mg capsule 650 mg (2 x 325 mg) PO Q6H PRN 06/23/23 (Tylenol) pain #60 caps ibuprofen 400 mg tablet 400 mg PO TID PRN pain #30 tabs 06/23/23 lidocaine HCl 2 % mucosal solution 1 applic mucous membrane BID PRN 06/23/23 (Lidocaine Viscous) pain #100 mL penicillin V potassium 250 mg 250 mg PO QID 10 days #40 tabs 06/23/23 tablet Allergies Allergy/AdvReac Type Severity Reaction Status Date / Time No Known Drug Allergies Allergy Verified 12/06/21 12:51 Review of Systems <Russ Allan PA-C - Last Filed: 06/23/23 11:31> Review of Systems Narrative: GENERAL: Denies chills, fatigue, malaise, fever, sweats. HEENT: Reports left molar lower dental pain. Denies sinus pain, ear pain, sore throat, difficulty swallowing, dizziness. RESPIRATORY: Denies dyspnea, cough, wheezing, hemoptysis, sputum. CARDIOVASCULAR: Denies chest pain, palpitations, orthopnea, edema, GASTROINTESTINAL: Denies nausea, vomiting, abdominal pain, diarrhea, constipation, melena. : Denies dysuria, frequency, incontinence, hematuria, urinary retention. MUSCULOSKELETAL: denies weakness, joint pain, or bony pain SKIN: Denies rash, skin lesions, or other NEUROLOGIC: Denies weakness, headache, numbness, change in speech, confusion, seizures, incoordination. PSYCHIATRIC: No concerning psychosocial issues. 12 point review of systems is negative except for those stated above Patient History <Russ Allan PA-C - Last Filed: 06/23/23 11:31> Medical History Arthritis DDD (degenerative disc disease) GERD (gastroesophageal reflux disease) HTN (hypertension) Surgical History Hx of knee surgery Social History marital status: unknown household members: significant other and none Smoking Status: Current every day smoker alcohol intake: current substance use type: does not use Smoking Status: Current every day smoker alcohol intake frequency: 0-2 drinks per day Substance Use Type: former substance user, marijuana and tranquilizers Exam <Russ Allan PA-C - Last Filed: 06/23/23 11:31> Narrative Exam Narrative: GENERAL: Well-developed patient, in mild distress. HEAD: Atraumatic. Normocephalic. EYES: Pupils equal round and reactive. Extraocular motions intact. No scleral icterus. No injection or drainage. ENT: Left lower molars are tender to palpation of the gumline. No evidence of any periapical or periodontal abscesses. Uvula is midline. No erythema in the posterior oropharynx. Nose without bleeding, purulent drainage. Throat without erythema, tonsillar hypertrophy or exudate. Airway patent. NECK: Trachea midline. Non tender EXTREMITIES: No edema or joint tenderness. BACK: Nontender without deformity or crepitance. No flank tenderness. NEURO: AOx3. SKIN: No rash or erythema of visible areas Initial Vital Signs Initial Vital Signs: Vital Signs Temperature 97.9 F 06/23/23 09:26 Pulse Rate 73 06/23/23 09:26 Respiratory Rate 16 06/23/23 09:26 Blood Pressure 115/86 06/23/23 09:26 Pulse Oximetry 99 06/23/23 09:26 Oxygen Delivery Method Room Air 06/23/23 09:26 <Key Guzmán MD - Last Filed: 06/23/23 14:02> Initial Vital Signs Initial Vital Signs: Vital Signs Temperature 97.9 F 06/23/23 09:26 Pulse Rate 73 06/23/23 09:26 Respiratory Rate 16 06/23/23 09:26 Blood Pressure 115/86 06/23/23 09:26 Pulse Oximetry 99 06/23/23 09:26 Oxygen Delivery Method Room Air 06/23/23 09:26 Course <Russ Allan PA-C - Last Filed: 06/23/23 11:31> Vital Signs Vital signs: Vital Signs - 8 hr 06/23/23 09:26 06/23/23 11:34 Temperature 97.9 F 98.1 F Pulse Rate 73 72 Respiratory Rate 16 16 Blood Pressure 115/86 121/76 Pulse Oximetry 99 98 Oxygen Delivery Method Room Air Room Air <Key Guzmán MD - Last Filed: 06/23/23 14:02> Vital Signs Vital signs: Vital Signs - 8 hr 06/23/23 09:26 06/23/23 11:34 Temperature 97.9 F 98.1 F Pulse Rate 73 72 Respiratory Rate 16 16 Blood Pressure 115/86 121/76 Pulse Oximetry 99 98 Oxygen Delivery Method Room Air Room Air MDM - Dental/Oral <Russ Allan PA-C - Last Filed: 06/23/23 11:31> MDM Narrative Medical decision making narrative: MDM * differential diagnosis includes but not limited to peritonsillar abscess, periapical abscess, dental infection, strep pharyngitis * Prior records reviewed: Patient was seen here 5 months ago due to an abrasion of the lip. He was tackled by police. History of arthritis, degenerative disc disease, GERD, hypertension. Eventually discharged home * My lab interpretation: None obtained * My imaging interpretation: None obtained * Clinical Decision Rules/Scores evaluated: None * Independent discussions with: None ED Course: This is a 67-year-old male presenting to the emergency department due to suspected dental infection to the left lower side for the last month. Denies any difficulty breathing or swallowing. We will treat with oral antibiotics and ibuprofen and Tylenol until he is able to follow up with his dentist on Monday 4 days from now. Shared Decision Making: Discussed plan with the patient who is comfortable with the plan Social Considerations: None Disposition: Discharged home Discharge Plan Departure Patient Disposition: Home Clinical Impression: Dental infection Prescriptions: New penicillin V potassium 250 mg tablet 250 mg PO QID 10 Days Qty: 40 0RF lidocaine HCl [Lidocaine Viscous] 2 % solution 1 applic mucous membrane BID PRN (Reason: pain) Qty: 100 0RF acetaminophen [Tylenol] 325 mg capsule 650 mg PO Q6H PRN (Reason: pain) Qty: 60 0RF ibuprofen 400 mg tablet 400 mg PO TID PRN (Reason: pain) Qty: 30 0RF No Action prednisone 10 mg tablets,dose pack See Rx Instructions .ROUTE .COMPLEX Qty: 48 0RF Rx Instructions: orally per package directions Referrals: Natalia Mock MD [Primary Care Provider] - Stand Alone Forms: Patient Portal/API ED Sign-out <Key Guzmán MD - Last Filed: 06/23/23 14:02> Cosign ED Attending Cossamanthaature Attestation: I did not see this patient. I was available all times for consultation.
[2023-06-23 11:34] VITALS: BP 121/76; PULSE 72; RESP 16; TEMP 36.7; O2SAT 98
== END 2023-06-23 11:35 | disposition home or self-care (01) ==
PROVIDERS: Emergency Provider Physician Assistant Medical; Family Provider Family Medicine; PCP Family Medicine
DX: K04.7 Periapical abscess without sinus (principal)
CPT/HCPCS: 99281; 99283